=== PATIENT | female | born 1970 | race Caucasian/White ===

== ENCOUNTER 2023-02-17 08:00 | Outpatient (CLI) | payer BC | END 2023-02-17 23:59 | disposition home or self-care (01) | LOC: LAB.S 08:00 | PROVIDERS: ATTEND Physician Assistant | DX: L08.89 Other specified local infections of the skin and subcutaneous tissue (principal) | CPT/HCPCS: 87070; 87181; 87205 ==

== ENCOUNTER 2023-04-09 07:00 | Outpatient (CLI) | payer BC ==
--- NOTE | 2023-04-09 11:03 | XRAY Report ---
PROCEDURE: Hand 3 View RT INDICATIONS: RIGHT HAND PAIN TECHNIQUE: 3 views of the hand(s) acquired. COMPARISON: None. FINDINGS: Bones: No fractures or dislocations. No suspicious bony lesions. Soft tissues: No suspicious soft tissue calcifications or masses. IMPRESSION: No acute fracture. No osseous lesion. If symptoms and/or clinical suspicion for pathology continue, f urther assessment with repeat plain films, or advanced imaging (e.g., CT, MRI, or bone scan) is recom mended for further assessment. Reviewed by: Erica Baca MD on 04/09/2023 10:02 AM [facility] Approved by: Erica Baca MD on 04/09/2023 10:02 AM [facility] Station ID: [id number]
== END 2023-04-09 23:59 | disposition home or self-care (01) ==
LOC: DI.S 07:00
PROVIDERS: ATTEND Physician Assistant
DX: M79.641 Pain in right hand (principal)

== ENCOUNTER 2023-04-09 15:24 | Outpatient (CLI) | payer BC ==
[2023-04-12 00:08] LABS: HBsAG SCREEN Negative (Negative); HEPATITIS B SURFACE AB QUAL Reactive (.)
== END 2023-04-09 15:25 | disposition home or self-care (01) ==
LOC: LAB 15:24
PROVIDERS: ATTEND Physician Assistant Medical
DX: Z11.59 Encounter for screening for other viral diseases (principal); Z11.1 Encounter for screening for respiratory tuberculosis
CPT/HCPCS: 36415; 81599; 86480; 86704; 86706; 87340

== ENCOUNTER 2023-04-16 08:00 | Outpatient (CLI) | payer BC | END 2023-04-16 23:59 | disposition home or self-care (01) | LOC: LAB 08:00 | PROVIDERS: ATTEND Physician Assistant Medical | DX: N39.0 Urinary tract infection, site not specified (principal) | CPT/HCPCS: 87086 ==